=== PATIENT | female | born 1995 | race Caucasian/White ===

== ENCOUNTER 2021-07-12 12:20 | Emergency (ER) | payer OTHER, SELFPAY ==
--- NOTE | ~2021-07-12 | XR_ITS ---
EXAMINATION: XR chest 2V EXAM DATE: 07/12/2021 14:21 INDICATION: Cough, dyspnea, fever. TECHNIQUE: Frontal and lateral projections of the chest obtained and reviewed. There is no prior gary dy for comparison. FINDINGS: The lungs are clear. There are no pleural effusions. The cardiomediastinal silhouette is within normal limits. There is no pneumothorax suspected. The bones and soft tissues are unremarkab le. IMPRESSION: No acute cardiopulmonary findings. Reviewed, dictated and finalized at location A.
--- NOTE | 2021-07-12 12:52 | ED.SOB ---
HPI - SOB/Dyspnea General Chief Complaint: Shortness of Breath/Dyspnea Stated Complaint: headache shortness of breath fatigue Time Seen by Provider: 07/12/21 12:52 Source: patient Mode of arrival: ambulatory Limitations: no limitations History of Present Illness HPI Narrative: 26-year-old woman comes in today complaining of headache, body aches, cough productive of white sputum, shortness of breath, diarrhea and posttussive vomiting that started yesterday. She has had fatigue and very little activity since. She has had neither the COVID nor the influenza vaccine. She has had no hemoptysis, syncope, chest pain, blood in her vomit, blood in her stools or known sick exposures. No history of lung disease, however she is a smoker. MD elicited complaint: shortness of breath and cough Onset (ago): day(s) (1) Severity: moderate Exacerbating factors: coughing Relieving factors: rest Associated symptoms: fever, cough, wheezing, sputum production and nausea/vomiting Related Data Home oxygen amount: none Allergies Allergy/AdvReac Type Severity Reaction Status Date / Time hydrocodone Allergy Hives Verified 07/12/21 12:55 Review of Systems Constitutional: Constitutional: Reports fatigue, Reports fever(s) and Reports weakness Eyes: Eyes: Denies change in vision and Denies photophobia ENT: Denies dysphagia, Reports nasal congestion and Denies sore throat Cardiovascular: Cardiovascular: Denies chest pain and Denies radiating jaw, neck or arm pain Respiratory: Respiratory: Denies chest congestion, Reports cough, Reports dyspnea and Reports wheezing Gastrointestinal: Gastrointestinal: Denies abdominal pain, Reports diarrhea, Reports nausea and Reports vomiting Genitourinary: Genitourinary: Denies nocturia and Denies dysuria Musculoskeletal: Musculoskeletal: Denies arthralgias and Denies joint swelling Comments: Denies calf pain and swelling Integumentary/Breasts: Skin/Breast: Denies pruritus, Denies erythema and Denies rash Neurologic: Denies vertigo, Denies dizziness and Denies syncope [facility] Social History Social History (Updated 07/12/21 @ 15:10 by Richy Jordan MD) Smoking status: Current every day smoker Alcohol intake: never Substance use: former Substance use type: former substance user, heroin, amphetamines and opiates Living arrangements: with family Exam Const: General: healthy appearing, no acute distress and alert Orientation/consciousness: patient oriented x3 Limitations: no limitations HENMT: Face and sinus: normal facial exam Eyes: Conjunctivae: conjunctivae normal Pupils: Equal, round and reactive pupils present EOM: EOMs intact bilaterally Resp: Effort & Inspection: normal respiratory effort Auscultation: no rales, no rhonchi and wheezes scattered wheezes Cardio: Rate: regular rate Rhythm: regular rhythm Heart sounds: no murmurs Skin: General skin exam: normal color, no jaundice and no pallor Rashes: no rashes Neuro: General: patient oriented x3, moves all extremities, no focal motor deficits and CN's II-XI intact bilaterally Speech: normal speech Gait exam (Neuro): Normal gait present Extrem: General: normal to inspection and no clubbing, cyanosis or edema Psych: Mental Status: mental status grossly normal Affect: normal affect Attitude: cooperative Thought content: Yes Normal thought content present Course Vital Signs Vital signs: Vital Signs Temperature 37.7 C H 07/12/21 12:56 Pulse Rate 91 07/12/21 12:56 Respiratory Rate 19 07/12/21 12:56 Blood Pressure 138/108 H 07/12/21 12:56 Pulse Oximetry 95 07/12/21 12:56 Temperature 37.7 C H 07/12/21 12:56 Pulse Rate 86 07/12/21 14:59 Respiratory Rate 18 07/12/21 15:01 Blood Pressure 118/81 07/12/21 15:01 Pulse Oximetry 97 07/12/21 15:01 MDM - SOB/Dyspnea Differential Diagnosis Differential diagnosis: Likely community acquired pneumonia and other (COVID, viral syndrome, influenza) Lab Data
[2021-07-12 12:56] VITALS: BP 138/108; PULSE 91; RESP 19; TEMP 37.7; O2SAT 95
[2021-07-12] MEDS: ACETAMINOPHEN/CODEINE (*CRX) 300/30 MG TABLET 0.5 TAB PO (13:17)
[2021-07-12] MEDS: ONDANSETRON HCL ODT 4 MG TABLET PO (13:19)
[2021-07-12 13:24] LABS: Basophils Absolute Auto 0.02 K/mm3 (0.00-0.10); Basophils Percent Auto 0.2 % (0.0-1.0); Eosinophils Absolute Auto 0.01 K/mm3 (0.02-0.50); Eosinophils Percent Auto 0.1 % (1.0-6.0); Hematocrit 39.2 % (35.0-49.0); Immature Granulocyte Absolute 0.04 K/mm3 (0.00-0.00); Immature Granulocyte Percent A 0.5 % (0.0-0.0); Lymphocytes Absolute Auto 0.81 K/mm3 (1.10-4.50); Lymphocytes Percent Auto 9.9 % (18.0-42.0); Mean Corpuscular HGB Conc 33.2 g/dL (32.0-36.0); Mean Corpuscular Hemoglobin 29.3 pg (27.0-31.0); Mean Corpuscular Volume 88.5 fL (78.0-102.0); Mean Platelet Volume 10.4 fl (9.2-11.8); Monocytes Absolute Auto 0.53 K/mm3 (0.10-0.90); Monocytes Percent Auto 6.5 % (2.0-11.0); Neutrophils Absolute Auto 6.8 K/mm3 (1.7-7.2); Neutrophils Percent Auto 82.8 % (50.0-70.0); Platelet Count Result 173 K/mm3 (150-420); Red Blood Count 4.43 M/mm3 (4.20-5.40); Red Cell Distribution Width 14.6 % (11.6-14.4); White Blood Count 8.2 K/mm3 (4.8-10.8)
[2021-07-12 13:38] LABS: Alanine Aminotransferase 27 U/L (14-59); Albumin Level 4.3 g/dL (3.4-5.0); Alkaline Phosphatase 93 U/L (46-116); Anion Gap 10 mmol/L (8-16); Aspartate Amino Transferase 18 U/L (15-37); Bilirubin,Total 2.6 mg/dL (0.00-1.00); Blood Urea Nitrogen 15 mg/dL (7-18); Carbon Dioxide 27 mmol/L (21-32); Chloride 98 mmol/L (98-108); Estimated Glomerular Filt Rate > 60; Glucose 91 mg/dL (70-99); Osmolality Calculated 280 mOsm/kg (285-295); Potassium 3.8 mmol/L (3.5-5.1); Sodium 135 mmol/L (136-145); Total Protein 8.2 g/dL (6.4-8.2)
[2021-07-12 14:06] LABS: Influenza A QL RT-PCR Negative (Negative); Influenza B QL RT-PCR Negative (Negative)
[2021-07-12 14:06] LABS: SARS-CoV-2 RNA PCR Negative (Negative)
[2021-07-12] MEDS: IPRATROPIUM 0.5 MG/ALBUTEROL SULFATE 2.5 MG AMPUL.NEB 3 ML INHALATION (14:52)
[2021-07-12 14:54] VITALS: PULSE 92; RESP 20; O2SAT 100
[2021-07-12 14:59] VITALS: PULSE 86; RESP 18; O2SAT 96
[2021-07-12 15:01] VITALS: BP 118/81; RESP 18; O2SAT 97
== END 2021-07-12 15:21 | disposition home or self-care (01) ==
PROVIDERS: Emergency Provider Emergency Medicine
DX: B34.9 Viral infection, unspecified (principal); J98.01 Acute bronchospasm; F17.200 Nicotine dependence, unspecified, uncomplicated; Z20.822 Contact with and (suspected) exposure to COVID-19
CPT/HCPCS: 71046; 80053; 85025; 87502; 94640; 99283; A9270; C9803; U0003; U0005

== ENCOUNTER 2021-10-04 14:34 | Emergency (ER) | payer OTHER, SELFPAY ==
--- NOTE | ~2021-10-04 | CT_ITS ---
EXAMINATION: CT abdomen pelvis wo con DATE: 10/04/2021 16:36 INDICATION: Left flank pain TECHNIQUE: Computed tomography (CT) of the abdomen and pelvis was performed without intravenous contr ast. Automated exposure control and iterative reconstruction technique were employed. The dose-length product was 1068.44 mGy-cm. COMPARISON: None FINDINGS: Lung bases are clear. Heart size is normal. No pericardial or pleural effusion. Diffuse hepatic steat osis. Cholecystectomy clips the gallbladder fossa. Splenomegaly measuring 15.5 cm craniocaudal length . Pancreas, left kidney and bilateral adrenal glands are normal. Asymmetric moderate right perinephri c stranding with mild right hydronephrosis. No evident hydroureter or urolithiasis. Bladder is normal . Bladder, anteverted uterus and bilateral adnexa are unremarkable. There are couple sigmoid divertic dirk without adjacent inflammatory change to suggest diverticular colitis. Small bowel is normal. Appe ndix not visualized and likely surgically absent with suture line along the tip of the cecum and luly tional suture line versus surgical clips along the ileocolic mesentery. No free intraperitoneal gas o r fluid. No pathologically enlarged abdominal or pelvic lymphadenopathy. Mild thoracolumbar spondylos is. IMPRESSION: 1. Right perinephric stranding and mild right hydronephrosis without evident obstructing stone or mas s. Could not exclude either a low density or recently passed stone. Correlate with urinalysis to excl ude ascending urinary tract infection. 2. Diffuse hepatic steatosis. 3. Nonspecific splenomegaly. Reviewed, dictated and finalized at [facility]. REL [employer] IMPRESSION: 1. Right perinephric stranding and mild right hydronephrosis without evident ob structing stone or mass. Could not exclude either a low density or recently pas sed stone. Correlate with urinalysis to exclude ascending urinary tract infecti on. 2. Diffuse hepatic steatosis. 3. Nonspecific splenomegaly.
--- NOTE | 2021-10-04 14:45 | ED.URI ---
HPI - URI/Sore Throat General Chief Complaint: Upper Respiratory Infection Stated Complaint: muscle soreness, vomiting, diarrhea Time Seen by Provider: 10/04/21 14:45 Source: patient History of Present Illness HPI Narrative: 26-year-old female a history of asthma, partial hysterectomy, smoker presents with - sore throat -- cough with purulent sputum -- nausea, vomiting, abdominal pain and diarrhea -- weakness and body ache no fever patient has not been vaccinated for COVID. MD elicited complaint: cough and sore throat Pertinent past history: asthma Onset (ago): day(s) ( Two days) Description of mucous: yellow Able to tolerate fluids by mouth: Yes Exacerbating factors: nothing Relieving factors: nothing Context: sick contacts Associated symptoms: myalgias, sore throat, abdominal pain, nausea, vomiting and diarrhea Related Data Allergies Allergy/AdvReac Type Severity Reaction Status Date / Time hydrocodone Allergy Hives Verified 07/12/21 12:55 Review of Systems Review of Systems: All systems reviewed & are unremarkable except as noted in HPI and below Constitutional: Constitutional: Reports as per HPI and Reports no additional constitutional complaints Eyes: Eyes: Reports as per HPI and Reports no additional eye complaints ENT: Reports sore throat Cardiovascular: Cardiovascular: Reports as per HPI and Reports no additional cardiovascular complaints Respiratory: Respiratory: Reports as per HPI, Reports no additional respiratory complaints and Reports cough Gastrointestinal: Gastrointestinal: Reports as per HPI, Reports abdominal pain, Reports diarrhea, Reports nausea and Reports vomiting Comments: Had 5 episodes of vomiting and 4- 5 episodes of diarrhea today. Genitourinary: Genitourinary: Reports no additional female genitourinary complaints and Reports as per HPI Musculoskeletal: Musculoskeletal: Reports no additional musculoskeletal complaints and Reports as per HPI Integumentary/Breasts: Skin/Breast: Reports system reviewed and no additional complaints, except as docu Neurologic: Reports system reviewed and no additional complaints, except as documented Psychiatric: Psychiatric: Reports no additional psychiatric complaints and Reports as per HPI Endocrine: Endocrine: Reports no additional endocrine complaints Hematologic/Lymphatic: Hematologic/Lymphatic: Reports no additional hematologic/lymphatic complaints Allergic/Immunologic: Allergic/Immunologic: Reports no additional allergic/immunologic complaints [facility] Past Medical History Medical History (Updated 10/04/21 @ 17:02 by Efrain Bowen MD) Post hysterectomy menopause Social History Social History Smoking status: Current every day smoker Alcohol intake: never Substance use: former Substance use type: former substance user, heroin, amphetamines and opiates Exam Const: General: no acute distress Orientation/consciousness: patient oriented x3 HENMT: Head: normal to inspection Eyes: Conjunctivae: conjunctivae normal Pupils: Equal, round and reactive pupils present Neck: Neck: normal visual inspection and no lymphadenopathy Chest: Chest palpation & inspection: normal inspection of the chest Resp: Effort & Inspection: normal respiratory effort Auscultation: clear to auscultation bilaterally Cardio: Rate: regular rate Rhythm: regular rhythm GI: GI Palp: Yes Soft to palpation Other: No abdominal tenderness/ rigidity /rebound. : General: Yes no CVA tenderness Back/Spine/Pelvis: Back: no CVA tenderness Skin: General skin exam: normal color Rashes: no rashes Neuro: General: patient oriented x3, moves all extremities, no meningeal signs and CN's II-XI intact bilaterally Speech: normal speech Extrem: General: normal to inspection Psych: Mental Status: mental status grossly normal Course Course Emergency Course: She is afebrile and hemodynamically s
[2021-10-04 14:48] VITALS: BP 115/78; PULSE 105; RESP 16; TEMP 36.2; O2SAT 99
[2021-10-04 15:15] LABS: Basophils Absolute Auto 0.02 K/mm3 (0.00-0.10); Basophils Percent Auto 0.1 % (0.0-1.0); Eosinophils Absolute Auto 0.01 K/mm3 (0.02-0.50); Eosinophils Percent Auto 0.1 % (1.0-6.0); Hematocrit 40.4 % (35.0-49.0); Immature Granulocyte Absolute 0.06 K/mm3 (0.00-0.00); Immature Granulocyte Percent A 0.4 % (0.0-0.0); Lymphocytes Absolute Auto 0.82 K/mm3 (1.10-4.50); Lymphocytes Percent Auto 5.9 % (18.0-42.0); Mean Corpuscular HGB Conc 34.7 g/dL (32.0-36.0); Mean Corpuscular Hemoglobin 30.3 pg (27.0-31.0); Mean Corpuscular Volume 87.4 fL (78.0-102.0); Mean Platelet Volume 10.5 fl (9.2-11.8); Monocytes Absolute Auto 0.79 K/mm3 (0.10-0.90); Monocytes Percent Auto 5.7 % (2.0-11.0); Neutrophils Absolute Auto 12.1 K/mm3 (1.7-7.2); Neutrophils Percent Auto 87.8 % (50.0-70.0); Platelet Count Result 190 K/mm3 (150-420); Red Blood Count 4.62 M/mm3 (4.20-5.40); Red Cell Distribution Width 15.3 % (11.6-14.4); White Blood Count 13.8 K/mm3 (4.8-10.8)
[2021-10-04 15:18] LABS: Add Urine Microscopic? YES; Appearance Urine Cloudy (Clear); Bilirubin Urine 2+ (Negative); Blood Urine 2+ (Negative); Color Urine Yellow (Yellow); Glucose Urine UA Trace (Negative); Ketones Urine 1+ (Negative); Leukocyte Esterase Ur 2+ (Negative); Nitrate Urine Positive (Negative); Pregnancy On Board Control Positive; Protein Urine 2+ (Negative); Urine Pregnancy Test Negative
[2021-10-04 15:30] LABS: Alanine Aminotransferase 19 U/L (14-59); Alkaline Phosphatase 100 U/L (46-116); Anion Gap 12 mmol/L (8-16); Aspartate Amino Transferase 15 U/L (15-37); Bilirubin,Total 2.5 mg/dL (0.00-1.00); Blood Urea Nitrogen 15 mg/dL (7-18); Calcium 9.4 mg/dL (8.5-10.1); Carbon Dioxide 26 mmol/L (21-32); Chloride 97 mmol/L (98-108); Estimated Glomerular Filt Rate 60; Glucose 102 mg/dL (70-99); Osmolality Calculated 280 mOsm/kg (285-295); Potassium 3.6 mmol/L (3.5-5.1); Sodium 135 mmol/L (136-145); Total Protein 8.9 g/dL (6.4-8.2)
[2021-10-04 15:34] LABS: Transitional Epi Cells Urine Few /hpf; WBC Urine 16-20 /hpf (0-3)
[2021-10-04 15:35] LABS: Bacteria Urine 1+ /hpf
[2021-10-04 15:50] LABS: Influenza A QL RT-PCR Negative (Negative); Influenza B QL RT-PCR Negative (Negative)
[2021-10-04 15:55] LABS: SARS-CoV-2 RNA PCR Negative (Negative)
[2021-10-04] MEDS: CIPROFLOXACIN 500 MG TAB PO (16:23)
[2021-10-04 16:50] VITALS: BP 129/93; PULSE 98; RESP 20; TEMP 37.1; O2SAT 98
[2021-10-04] MEDS: PROCHLORPERAZINE EDISYLATE 10 MG/2 ML VIAL IM (16:59)
== END 2021-10-04 17:12 | disposition home or self-care (01) ==
PROVIDERS: Emergency Provider Internal Medicine Critical Care Medicine
DX: N12 Tubulo-interstitial nephritis, not specified as acute or chronic (principal); N13.30 Unspecified hydronephrosis; Z20.822 Contact with and (suspected) exposure to COVID-19
CPT/HCPCS: 36415; 74176; 80053; 81001; 81025; 85025; 87502; 96372; 99283; 99284; A9270; C9803; J0780; U0003; U0005

== ENCOUNTER 2023-04-07 13:35 | Emergency (ER) | payer OTHER, SELFPAY ==
[2023-04-07] VITALS (11 sets, daily range): BP systolic 107–139; BP diastolic 66–104; PULSE 75–101; RESP 16–20; TEMP 37.1; O2SAT 94–98
--- NOTE | ~2023-04-07 | CT_ITS ---
Clinical Indication: Shortness of breath CT Scan of the Chest with Contrast: Technique: Contiguous sections were acquired throughout the chest after intravenous administration of 100 cc of Omnipaque 350. Dose reduction technique was used on this scan by utilizing automated expos ure control and iterative reconstruction technique. The dose-length product (DLP) was 563.90 mGy-cm. Findings: There is no evidence of any significant mediastinal, hilar or axillary lymphadenopathy. There is no f illing defect in the pulmonary arterial tree to suggest pulmonary embolus. There is no evidence of ao rtic dissection or aneurysm. There is no evidence of pleural or pericardial effusion. 4 mm right basilar pulmonary nodule present (axial image 94). There are several tiny scattered pleura l-based subcentimeter nodules in the right lung as well. There is a 5 mm anteromedial left upper lobe pulmonary nodule (axial image 51). There are several subcentimeter pleural-based nodules at the left lung base, largest measuring 5 mm. Images through the upper abdomen reveal probable splenomegaly, partially imaged. Impression: No evidence of pulmonary embolus, aortic dissection, or aortic aneurysm. Multiple subcentimeter pulmonary nodules, as detailed above. According to Fleischner Society criteria , for a low-risk patient, no further follow-up required. For a high-risk patient, consider 12 month f ollow-up CT. Reviewed, dictated and finalized at [facility]. Impression: No evidence of pulmonary embolus, aortic dissection, or aortic aneurysm. Multiple subcentimeter pulmonary nodules, as detailed above. According to Fleis chner Society criteria, for a low-risk patient, no further follow-up required. For a high-risk patient, consider 12 month follow-up CT.
--- NOTE | ~2023-04-07 | XR_ITS ---
XR chest 2V DATE: 04/07/2023 14:38 INDICATION: Cough, shortness of breath, wheezing, sore throat for 2 weeks. TECHNIQUE: PA and lateral views COMPARISON: 07/12/2021 2 view chest FINDINGS: Normal heart size. No hilar or mediastinal enlargement. No pulmonary infiltrate or consolid ation, pleural effusion or pulmonary vascular congestion or pneumothorax is detected. Surgical clips, right upper quadrant, consistent with cholecystectomy. IMPRESSION: No active cardiopulmonary disease Reviewed, dictated and finalized at location A.
--- NOTE | 2023-04-07 13:42 | ED.GENADULT ---
HPI - General Adult General Chief complaint: Upper Respiratory Infection Stated complaint: Upper Resp symptoms Time Seen by Provider: 04/07/23 13:42 Source: patient Mode of arrival: ambulatory Limitations: no limitations History of Present Illness HPI narrative: 28-year-old white female with a history of asthma as a child complains of 2 weeks cough productive of yellow sputum and wheezing. Patient quit smoking a week and half ago. Denies any fever. She has had a sore throat no rash or itching bleeding or bruising lumps or bumps or swelling dizziness or lightheadedness problems eating drinking stooling or voiding or problems walking talking seeing or hearing or any other complaints. \ Past medical history: She had asthma as a younger age past surgical history tubal ligation with remover tubes C-sections x2 appendectomy cholecystectomy social history quit smoking week and half ago Related Data Allergies Allergy/AdvReac Type Severity Reaction Status Date / Time hydrocodone Allergy Hives Verified 04/07/23 14:18 Review of Systems Review of Systems: All systems reviewed & are unremarkable except as noted in HPI and below PMFSH Past Medical History Medical History Post hysterectomy menopause Social History Social History Smoking status: Current every day smoker Alcohol intake: never Substance use: former Substance use type: former substance user, heroin, amphetamines and opiates Living arrangements: with family Exam Narrative: White female no apparent distress. vital signs are normal Head:? Normocephalic atraumatic.? Eyes conjunctiva pink sclera nonicteric.? Ears TMs are normal.? Oropharynx is clear with moist mucous membranes no exudates.? Neck is supple no lymphadenopathy nontender full range of motion.? Back is nontender.? Chest nontender.? Lungs show wheezes diffusely without rales or rhonchi.? Heart is regular rate rhythm without murmurs gallops or rubs.? Abdomen soft and nontender no hepatosplenomegaly or masses no CVA tenderness no abdominal bruits.? Extremities no cyanosis clubbing or edema.? Neurological she is alert and oriented x4 motor and sensory grossly intact.? Skin is warm and dry without lesions. Course Vital Signs Vital signs: Vital Signs Temperature 37.1 C 04/07/23 13:35 Pulse Oximetry 98 04/07/23 13:35 Oxygen Delivery Room Air 04/07/23 13:35 Temperature 37.1 C 04/07/23 17:00 Pulse Rate 82 04/07/23 17:00 Respiratory Rate 17 04/07/23 17:00 Blood Pressure 130/88 04/07/23 17:00 Pulse Oximetry 97 04/07/23 17:00 Oxygen Delivery Room Air 04/07/23 17:00 Medical Decision Making MDM Narrative Medical decision making narrative: Independent Historian: patient Differential Dx includes but not limited to: asthma pneumonia strep COVID influenza a and B bronchospasm Medications were Reviewed:yes Medications, treatment, ED course: patient was given albuterol nebulizer for which she got a great benefit. . Chest x-ray was negative D-dimer was mildly elevated she went for a CTA of the chest that showed no PE. CBC, COVID, flu a and B, strep and CMP all were normal. Independently Interpreted by me: Chest x-ray showed no active disease as interpreted by me. External Source Review: Shared decision Making: Evaluation was discussed and all questions were answered and patient agreed on the plan to use an albuterol inhaler 2 puffs 4 times a day take Z-Andrade and prednisone 40 mg daily for 5 days and return if she got worse. Social Situation Impacting Patients Care: Discussed with Dr. ADLER DIAGNOSIS: Asthmatic bronchitis DISPOSITION: discharge home CONDITION AT DISCHARGE: stable Vital Signs Vital Signs: Vital Signs Temperature 37.1 C 04/07/23 13:35 Pulse Oximetry 98 04/07/23 13:35 Oxygen Delivery Room Air 04/07/23 13:35 [place]
[2023-04-07] MEDS: ALBUTEROL SULFATE NEB 2.5 MG/3 ML INH INHALATION (14:17)
[2023-04-07 14:37] LABS: Hematocrit 39.8 % (35.0-49.0); Hemoglobin 13.6 g/dL (12.0-15.0); Mean Corpuscular HGB Conc 34.2 g/dL (32.0-36.0); Mean Corpuscular Hemoglobin 30.2 pg (27.0-31.0); Mean Corpuscular Volume 88.4 fL (78.0-102.0); Mean Platelet Volume 10.1 fl (9.2-11.8); Platelet Count Result 155 K/mm3 (150-420); Red Cell Distribution Width 15.3 % (11.6-14.4); White Blood Count 6.6 K/mm3 (4.8-10.8)
[2023-04-07 14:52] LABS: Alanine Aminotransferase 20 U/L (14-59); Albumin Level 4.2 g/dL (3.4-5.0); Alkaline Phosphatase 94 U/L (46-116); Anion Gap 12 mmol/L (8-16); Aspartate Amino Transferase 25 U/L (15-37); Bilirubin,Total 1.7 mg/dL (0.00-1.00); Blood Urea Nitrogen 14 mg/dL (7-18); Carbon Dioxide 24 mmol/L (21-32); Chloride 102 mmol/L (98-108); Estimated Glomerular Filt Rate > 60; Glucose 81 mg/dL (70-99); Osmolality Calculated 285 mOsm/kg (285-295); Partial Thromboplastin Time 28.1 SEC (23.90-30.70); Potassium 3.6 mmol/L (3.5-5.1); Prothrombin Time 11.3 Seconds (9.50-12.10); Sodium 138 mmol/L (136-145); Total Protein 8.3 g/dL (6.4-8.2)
[2023-04-07 14:56] LABS: D Dimer 0.63 mg/L (0.19-0.50)
[2023-04-07 15:06] LABS: Strep Group A RT-PCR Not Detected (Negative)
[2023-04-07 16:07] LABS: SARS-CoV-2 RNA PCR Negative (Negative)
== END 2023-04-07 17:00 | disposition home or self-care (01) ==
PROVIDERS: Emergency Provider Emergency Medicine
DX: J45.901 Unspecified asthma with (acute) exacerbation (principal); F17.200 Nicotine dependence, unspecified, uncomplicated; Z20.822 Contact with and (suspected) exposure to COVID-19
CPT/HCPCS: 36415; 71046; 71275; 80053; 85027; 85380; 85610; 85730; 87635; 87651; 94640; 99284; Q9967

== ENCOUNTER 2023-06-13 07:32 | Emergency (ER) | payer OTHER, SELFPAY ==
[2023-06-13 07:32] VITALS: BP 140/96; PULSE 83; RESP 18; TEMP 36.5; O2SAT 96
--- NOTE | 2023-06-13 08:04 | ED.SOB ---
HPI - SOB/Dyspnea General Chief Complaint: Shortness of Breath/Dyspnea Stated Complaint: cough, shortness of breath Time Seen by Provider: 06/13/23 07:43 Source: patient Mode of arrival: ambulatory Limitations: no limitations History of Present Illness HPI Narrative: this is a 28-year-old female that presents with some shortness of breath does have a remote history of asthma was seen in the ER too long ago prescribed albuterol for bronchitis. Currently for the last week has been having some chest congestion some audible wheezing cough that is nonproductive with no fever chills no chest pain no abdominal pain no retractions. Patient is a smoker. MD elicited complaint: shortness of breath and cough Pertinent past history: asthma Onset (ago): day(s) Severity: mild Related Data Allergies Allergy/AdvReac Type Severity Reaction Status Date / Time hydrocodone Allergy Hives Verified 04/07/23 14:18 Review of Systems Review of Systems: All systems reviewed & are unremarkable except as noted in HPI and below PMFSH Past Medical History Medical History Post hysterectomy menopause Social History Social History Smoking status: Current every day smoker Alcohol intake: never Substance use: former Substance use type: former substance user, heroin, amphetamines and opiates Living arrangements: with family Exam Const: General: healthy appearing Nutritional Appearance: well nourished Orientation/consciousness: patient oriented x3 Limitations: no limitations HENMT: Head: normal to inspection Eyes: Conjunctivae: conjunctivae normal Neck: Neck: normal visual inspection Chest: Chest palpation & inspection: normal inspection of the chest Resp: Effort & Inspection: normal respiratory effort Auscultation: wheezes Cardio: Rate: regular rate Rhythm: regular rhythm GI: GI Palp: Yes Soft to palpation Neuro: General: patient oriented x3 Extrem: General: normal to inspection Course Course Emergency Course: Patient had a COVID RSV and influenza performed and reviewed with patient, DuoNebs was given along with 80mg IM Depo-Medrol reassessment of patient patient symptoms have improved there is less wheezing. Advised patient to discontinue smoking. Critical Care Time Critical Care Time Critical Care Time: No Discharge Plan Discharge Clinical Impression: Bronchitis Patient Disposition: Home, Self-Care Condition: Stable Instructions: Antibiotic Form, Acute Bronchitis (ED) Additional Instructions: advised to take medicine as prescribed and follow-up with primary within 1 to 2 weeks further evaluation treatment. Prescriptions: New ProAir RespiClick 90 mcg/actuation aerosol powdr breath activated 2 inh inhalation QID PRN (Reason: shortness of breath or wheezing) Qty: 1 0RF azithromycin [Zithromax Z-Andrade] 250 mg tablet See Rx Instructions .ROUTE .COMPLEX Qty: 6 0RF Rx Instructions: For 250 mg dose pack: take 500 mg today (day 1), then 250 mg for 4 days (days 2-5) prednisone 20 mg tablet 20 mg PO DAILY 5 Days Qty: 5 0RF No Action albuterol sulfate [Ventolin HFA] 90 mcg/actuation HFA aerosol inhaler 2 puff inhalation QID 10 Days Qty: 8.5 0RF Follow-up/Referrals: UNKNOWN,DOCTOR [Primary Care Provider] - Time of Disposition: 09:01
[2023-06-13] MEDS: IPRATROPIUM 0.5 MG/ALBUTEROL SULFATE 2.5 MG AMPUL.NEB 3 ML INHALATION (08:06)
[2023-06-13 08:07] VITALS: PULSE 84; RESP 16; O2SAT 94
[2023-06-13] MEDS: methylPREDNISolone ACETATE 40 MG/ML VIAL 80 MG IM (08:08)
[2023-06-13 08:13] VITALS: PULSE 100; RESP 16; O2SAT 99
--- NOTE | 2023-06-13 08:43 | PC.NURSE ---
pt resting eyes closed. resp even unlabored. decreased cough after resp treatment. awaiting covid test results
[2023-06-13 08:57] LABS: Influenza A QL RT-PCR Negative (Negative); Influenza B QL RT-PCR Negative (Negative); RSV RNA, RT-PCR Negative (Negative); SARS-CoV-2 RNA PCR Negative (Negative)
[2023-06-13 09:11] VITALS: BP 154/95; PULSE 77; RESP 20; TEMP 37.2; O2SAT 97
== END 2023-06-13 09:20 | disposition home or self-care (01) ==
PROVIDERS: Emergency Provider Emergency Medicine
DX: J40 Bronchitis, not specified as acute or chronic (principal); F17.200 Nicotine dependence, unspecified, uncomplicated; Z20.822 Contact with and (suspected) exposure to COVID-19
CPT/HCPCS: 87637; 94640; 96372; 99283; J1030

== ENCOUNTER 2023-08-12 15:53 | Emergency (ER) | payer OTHER, SELFPAY ==
[2023-08-12 15:53] VITALS: BP 157/96; PULSE 79; RESP 18; TEMP 36.2; O2SAT 98
--- NOTE | 2023-08-12 16:10 | ED.GENADULT ---
HPI - General Adult General Chief complaint: Wound/Laceration Stated complaint: toe laceration Time Seen by Provider: 08/12/23 16:04 History of Present Illness HPI narrative: 28yo woman presents with abrasion/laceration to left great toe after scraping it over a sliding door metal frame. Related Data Allergies Allergy/AdvReac Type Severity Reaction Status Date / Time hydrocodone Allergy Hives Verified 08/12/23 16:05 Review of Systems Review of Systems: All systems reviewed & are unremarkable except as noted in HPI and below Constitutional: Constitutional: Denies fever(s) ENT: Denies dysphagia Cardiovascular: Cardiovascular: Denies chest pain Respiratory: Respiratory: Denies dyspnea PMFSH Past Medical History Medical History Post hysterectomy menopause Social History Social History Smoking status: Current every day smoker Alcohol intake: never Substance use: former Substance use type: former substance user, heroin, amphetamines and opiates Living arrangements: with family Exam Const: General: healthy appearing and no acute distress Nutritional Appearance: well nourished Eyes: Conjunctivae: conjunctivae normal Resp: Effort & Inspection: normal respiratory effort Skin: General skin exam: normal color, no jaundice and no pallor Other: tiny abrasion with tissue flap to volar aspect of left great toe Extrem: General: no clubbing, cyanosis or edema Other: see skin exam Course Vital Signs Vital signs: Vital Signs Temperature 36.2 C L 08/12/23 15:53 Pulse Rate 79 08/12/23 15:53 Respiratory Rate 18 08/12/23 15:53 Blood Pressure 157/96 H 08/12/23 15:53 Pulse Oximetry 98 08/12/23 15:53 Oxygen Delivery Room Air 08/12/23 15:53 Temperature 36.2 C L 08/12/23 15:53 Pulse Rate 79 08/12/23 15:53 Respiratory Rate 18 08/12/23 15:53 Blood Pressure 157/96 H 08/12/23 15:53 Pulse Oximetry 98 08/12/23 15:53 Oxygen Delivery Room Air 08/12/23 15:56 Procedures Laceration Laceration 1: Date: 08/12/23 Time: 16:14 Site: lower extremity Size (cm): 0.5 Description: flap Depth: simple, single layer Local Anesthetic: none Pre-repair: irrigated extensively ====== Skin Level ====== Skin layer closed with: dermabond ====== Subcutaneous Layer ====== ====== Muscle Layer ====== ====== Tendon Layer ====== Medical Decision Making MDM Narrative Medical decision making narrative: blunt trauma DDx abrasion, contusion, laceration, hematoma Vital Signs Vital Signs: Vital Signs Temperature 36.2 C L 08/12/23 15:53 Pulse Rate 79 08/12/23 15:53 Respiratory Rate 18 08/12/23 15:53 Blood Pressure 157/96 H 08/12/23 15:53 Pulse Oximetry 98 08/12/23 15:53 Oxygen Delivery Room Air 08/12/23 15:53 Temperature 36.2 C L 08/12/23 15:53 Pulse Rate 79 08/12/23 15:53 Respiratory Rate 18 08/12/23 15:53 Blood Pressure 157/96 H 08/12/23 15:53 Pulse Oximetry 98 08/12/23 15:53 Oxygen Delivery Room Air 08/12/23 15:56 Discharge Plan Discharge Clinical Impression: Abrasion of great toe, left Qualifiers: Encounter type: initial encounter Qualified Code(s): S90.412A - Abrasion, left great toe, initial encounter Patient Disposition: Home, Self-Care Condition: Stable Additional Instructions: Keep your foot clean and dry. You may wash gently with soap and water. Do not scrub vigorously for the next 72 hours to avoid disturbing the wound. Prescriptions: No Action albuterol sulfate [Ventolin HFA] 90 mcg/actuation HFA aerosol inhaler 2 puff inhalation QID 10 Days Qty: 8.5 0RF albuterol sulfate 90 mcg/actuation HFA aerosol inhaler 1 puff inhalation QID PRN (Reason: shortness of breath or wheezing) Qty: 6.7 0RF F
[2023-08-12] MEDS: TETANUS,DIPHTHERIA,AC PERTUSSIS ADULT 0.5 ML (ADACEL) IM (16:21)
[2023-08-12 16:50] VITALS: BP 142/92; PULSE 80; RESP 18; O2SAT 98
--- NOTE | 2023-08-12 16:51 | PC.NURSE ---
WOUND REPAIRED WITH SKIN GLUE AND BANDAID APPLIED. PT AMBULATORY OUT OF ED WITHOUT DISTRESS.
== END 2023-08-12 16:50 | disposition home or self-care (01) ==
LOC: CHSED 16:41
PROVIDERS: Emergency Provider Emergency Medicine
DX: S91.112A Laceration without foreign body of left great toe without damage to nail, initial encounter (principal); S90.412A Abrasion, left great toe, initial encounter; F17.200 Nicotine dependence, unspecified, uncomplicated; Z23 Encounter for immunization; W22.8XXA Striking against or struck by other objects, initial encounter
CPT/HCPCS: 12001; 90471; 90715; 99282

== ENCOUNTER 2024-02-15 19:37 | Emergency (ER) | payer SELFPAY ==
--- NOTE | ~2024-02-15 | XR_ITS ---
EXAMINATION: XR chest 1V portable Exam Date/Time: 02/15/2024 19:46 CDT HISTORY: cough /shortness of breath Comparison: 04/07/2023. RESULT: Lines, tubes, and devices: Cholecystectomy clips. Lungs and pleura: Clear. Cardiomediastinal silhouette: Stable. Other: No acute osseous or upper abdominal finding. IMPRESSION: No acute cardiopulmonary process. Reviewed, dictated and finalized at location K.
[2024-02-15 19:43] VITALS: BP 157/90; PULSE 107; RESP 18; TEMP 37; O2SAT 98
--- NOTE | 2024-02-15 19:44 | ED.DIZZY ---
HPI - Dizziness General Chief Complaint: Upper Respiratory Infection Stated Complaint: Dizzy/Diahrea Source: patient Mode of arrival: ambulatory Limitations: no limitations History of Present Illness HPI Narrative: 29 year a history smoking, marijuana use, asthma presents to the ER a 2 day history of -- nonproductive cough -- shortness of breath. -- Dizziness. the patient complains of lightheadedness -- 1 episode of large volume diarrhea. No abdominal pain. No nausea / vomiting. No fever or chills. MD elicited complaint: dizziness and lightheadedness Onset (ago): day(s) ( Two days) Timing: gradual onset Severity: moderate Description: lightheadedness History of similar symptoms: No Exacerbating factors: nothing Relieving factors: nothing Associated symptoms: shortness of breath and weakness Related Data Allergies Allergy/AdvReac Type Severity Reaction Status Date / Time hydrocodone Allergy Hives Verified 02/15/24 19:49 Review of Systems Review of Systems: All systems reviewed & are unremarkable except as noted in HPI and below Constitutional: Constitutional: Reports as per HPI and Reports no additional constitutional complaints Eyes: Eyes: Reports as per HPI and Reports no additional eye complaints ENT: Reports system reviewed and no additional complaints, except as documented and Reports as per HPI Cardiovascular: Cardiovascular: Reports as per HPI and Reports no additional cardiovascular complaints Respiratory: Respiratory: Reports as per HPI, Reports no additional respiratory complaints, Reports cough and Reports dyspnea Gastrointestinal: Gastrointestinal: Reports as per HPI, Reports no additional gastrointestinal complaints and Reports vomiting Genitourinary: Genitourinary: Reports no additional female genitourinary complaints Musculoskeletal: Musculoskeletal: Reports no additional musculoskeletal complaints and Reports as per HPI Integumentary/Breasts: Skin/Breast: Reports system reviewed and no additional complaints, except as docu and Reports as per HPI Neurologic: Reports system reviewed and no additional complaints, except as documented and Reports as per HPI Psychiatric: Psychiatric: Reports no additional psychiatric complaints and Reports as per HPI Endocrine: Endocrine: Reports no additional endocrine complaints and Reports as per HPI Hematologic/Lymphatic: Hematologic/Lymphatic: Reports no additional hematologic/lymphatic complaints and Reports as per HPI Allergic/Immunologic: Allergic/Immunologic: Reports no additional allergic/immunologic complaints and Reports as per HPI PMFSH Past Medical History Medical History Post hysterectomy menopause Social History Social History Smoking status: Current every day smoker Alcohol intake: never Substance use: former Substance use type: former substance user, heroin, amphetamines and opiates Living arrangements: with family Exam Narrative: afebrile. Oxygen saturation of 98% on room air. Heart rate of 107. Const: General: no acute distress Nutritional Appearance: well nourished Orientation/consciousness: patient oriented x3 Limitations: no limitations HENMT: Head: normal to inspection Ears: TM's normal bilaterally Face/Nose/Sinus: Normal external nose present Face and sinus: normal facial exam Mouth: Yes Normal oral and palatal mucosa present Throat: posterior oropharynx normal Eyes: Conjunctivae: conjunctivae normal Pupils: Equal, round and reactive pupils present EOM: EOMs intact bilaterally Direct Ophthalmoscopy: no photophobia Neck: Neck: normal visual inspection, no lymphadenopathy and no meningeal signs Chest: Chest palpation & inspection: normal inspection of the chest Resp: Effort & Inspection: normal respiratory effort Auscultation: diminished lung sounds Cardio: Rate: regular rate Rhythm: reg
--- NOTE | 2024-02-15 19:45 | ECG_ITS ---
SEE SCANNED COPY FOR CONFIRMED REPORT MTDD
[2024-02-15 19:48] VITALS: O2SAT 98
[2024-02-15 20:27] LABS: Basophils Absolute Auto 0.01 K/mm3 (0.00-0.10); Basophils Percent Auto 0.2 % (0.0-1.0); Bilirubin Urine Negative (Negative); Blood Urine Trace-intact (Negative); Color Urine Light Yellow (Yellow); Eosinophils Absolute Auto 0.05 K/mm3 (0.02-0.50); Eosinophils Percent Auto 0.9 % (1.0-6.0); Glucose Urine UA Negative (Negative); Hemoglobin 12.2 g/dL (12.0-15.0); Immature Granulocyte Absolute 0.02 K/mm3 (0.00-0.00); Immature Granulocyte Percent A 0.4 % (0.0-0.0); Ketones Urine Negative (Negative); Leukocyte Esterase Ur Negative LEU/UL (Negative); Lymphocytes Absolute Auto 0.63 K/mm3 (1.10-4.50); Lymphocytes Percent Auto 11.6 % (18.0-42.0); Mean Corpuscular Hemoglobin 29.5 pg (27.0-31.0); Mean Corpuscular Volume 89.4 fL (78.0-102.0); Mean Platelet Volume 9.8 fl (9.2-11.8); Monocytes Percent Auto 7.4 % (2.0-11.0); Neutrophils Absolute Auto 4.31 K/mm3 (1.70-7.20); Neutrophils Percent Auto 79.5 % (50.0-70.0); Nitrate Urine Negative (Negative); Platelet Count Result 153 K/mm3 (150-420); Protein Urine Negative (Negative); Red Blood Count 4.14 M/mm3 (4.20-5.40); Red Cell Distribution Width 15.8 % (11.6-14.4); White Blood Count 5.4 K/mm3 (4.8-10.8); pH Urine 6.5 (5.0-8.0)
[2024-02-15 20:46] LABS: Add Urine Microscopic? YES; Amorphous Sediment Urine Few; Appearance Urine Sl Cloudy (Clear); Bacteria Urine 1+ /hpf; RBC Urine 0-2 /hpf (0-2); Squamous Epithelial Cell Urine Many /hpf (Few)
[2024-02-15 20:57] LABS: Alanine Aminotransferase 30 U/L (14-59); Albumin Level 3.8 g/dL (3.4-5.0); Alkaline Phosphatase 91 U/L (46-116); Anion Gap 10 mmol/L (4-12); Aspartate Amino Transferase 15 U/L (15-37); Bilirubin,Total 0.9 mg/dL (0.00-1.00); Blood Urea Nitrogen 14 mg/dL (7-18); Carbon Dioxide 27 mmol/L (21-32); Chloride 102 mmol/L (98-108); Estimated Glomerular Filt Rate > 60; Glucose 93 mg/dL (70-99); Lactic Acid Reflex 0.7 mmol/L (0.4-2.0); Lipase 21 U/L (16-77); Osmolality Calculated 288 mOsm/kg (285-295); Potassium 3.4 mmol/L (3.5-5.1); Sodium 139 mmol/L (136-145); Total Protein 7.5 g/dL (6.4-8.2)
[2024-02-15 20:58] LABS: Troponin I < 4.0 ng/L (0.00-60.4)
[2024-02-15 21:09] VITALS: BP 149/97; PULSE 92; RESP 18; TEMP 36.7; O2SAT 100
[2024-02-15] MEDS: POTASSIUM CHLORIDE 20 MEQ ER TABLET PO (21:17)
[2024-02-15] MEDS: methylPREDNISolone SOD SUCC 40 MG VIAL IV PUSH (21:17)
[2024-02-15] MEDS: AZITHROMYCIN 250 MG TABLET 500 MG PO (21:17)
== END 2024-02-15 21:50 | disposition home or self-care (01) ==
PROVIDERS: Emergency Provider Internal Medicine Critical Care Medicine
DX: J40 Bronchitis, not specified as acute or chronic (principal); F17.210 Nicotine dependence, cigarettes, uncomplicated; F12.90 Cannabis use, unspecified, uncomplicated
CPT/HCPCS: 36415; 71045; 80053; 81001; 83605; 83690; 84484; 85025; 93005; 96374; 99284; A9270; J2919

== ENCOUNTER 2024-02-18 20:23 | Emergency (ER) | payer SELFPAY ==
[2024-02-18] VITALS (14 sets, daily range): BP systolic 125–148; BP diastolic 78–99; PULSE 87–95; RESP 20; O2SAT 93–100
--- NOTE | ~2024-02-18 | XR_ITS ---
EXAMINATION: XR chest 2V Exam Date/Time: 02/18/2024 20:50 CDT HISTORY: sob Comparison: 02/15/2024. RESULT: Lines, tubes, and devices: Cholecystectomy clips. Lungs and pleura: Clear. Cardiomediastinal silhouette: Stable. Other: No acute osseous or upper abdominal finding. IMPRESSION: No acute cardiopulmonary process. Reviewed, dictated and finalized at location K.
--- NOTE | 2024-02-18 20:31 | ED.URI ---
HPI - URI/Sore Throat General Chief Complaint: Upper Respiratory Infection Stated Complaint: Hoarseness/cough/sore throat Time Seen by Provider: 02/18/24 20:26 Source: patient Mode of arrival: ambulatory Limitations: no limitations History of Present Illness HPI Narrative: Patient is a 29-year-old female who was here last week for asthma exacerbation and bronchitis. She was given a Z-Andrade and 1 shot of steroid. She appears to be not doing better at this time per her discussion. She is feeling more short of breath at this time. No chest pain. MD elicited complaint: cough and sore throat Pertinent past history: asthma Onset (ago): week(s) (1) Consistency: constant Severity: moderate Pain scale (0-10): 1 Description of mucous: clear Able to tolerate fluids by mouth: Yes Exacerbating factors: nothing Relieving factors: nothing Associated symptoms: voice changes, sore throat, cough and shortness of breath Treatments prior to arrival: antibiotics Related Data Allergies Allergy/AdvReac Type Severity Reaction Status Date / Time hydrocodone Allergy Hives Verified 02/15/24 19:49 Review of Systems Review of Systems: All systems reviewed & are unremarkable except as noted in HPI and below Constitutional: Constitutional: Reports no additional constitutional complaints Eyes: Eyes: Reports no additional eye complaints ENT: Reports system reviewed and no additional complaints, except as documented Cardiovascular: Cardiovascular: Reports no additional cardiovascular complaints Respiratory: Respiratory: Reports no additional respiratory complaints Gastrointestinal: Gastrointestinal: Reports no additional gastrointestinal complaints Genitourinary: Genitourinary: Reports no additional female genitourinary complaints Musculoskeletal: Musculoskeletal: Reports no additional musculoskeletal complaints Integumentary/Breasts: Skin/Breast: Reports system reviewed and no additional complaints, except as docu Neurologic: Reports system reviewed and no additional complaints, except as documented Psychiatric: Psychiatric: Reports no additional psychiatric complaints Endocrine: Endocrine: Reports no additional endocrine complaints Hematologic/Lymphatic: Hematologic/Lymphatic: Reports no additional hematologic/lymphatic complaints Allergic/Immunologic: Allergic/Immunologic: Reports no additional allergic/immunologic complaints [facility] Past Medical History Medical History Post hysterectomy menopause Social History Social History Smoking status: Current every day smoker Alcohol intake: never Substance use: former Substance use type: former substance user, heroin, amphetamines and opiates Living arrangements: with family Exam Const: General: healthy appearing Nutritional Appearance: well nourished Orientation/consciousness: patient oriented x3 HENMT: Head: normal to inspection Ears: external ears normal Face/Nose/Sinus: Normal external nose present Eyes: Conjunctivae: conjunctivae normal Pupils: Equal, round and reactive pupils present EOM: EOMs intact bilaterally Neck: Neck: normal visual inspection Chest: Chest palpation & inspection: normal inspection of the chest Resp: Effort & Inspection: abnormal respiratory effort, not labored and tachypneic Auscultation: not clear to auscultation bilaterally, no crackles, no rales, rhonchi left lower, no wheezes, breath sounds present and diminished lung sounds on the right in the lower lung bojorquez and localized Cardio: Rate: regular rate Rhythm: regular rhythm Heart sounds: no murmurs GI: Inspection: non-distended GI Palp: Yes Soft to palpation and No Tenderness to palpation present (GI) Auscultation: normal bowel sounds : General: Yes bladder normal to palpation Back/Spine/Pelvis: Back: no CVA tenderness Skin: General skin exam: normal color Rashe
[2024-02-18] MEDS: methylPREDNISolone SOD SUCC 125 MG VIAL IM (20:38)
[2024-02-18] MEDS: IPRATROPIUM 0.5 MG/ALBUTEROL SULFATE 2.5 MG AMPUL.NEB 3 ML INHALATION (20:39)
[2024-02-18] MEDS: levoFLOXacin 500 MG TABLET PO (22:00)
== END 2024-02-18 22:02 | disposition home or self-care (01) ==
PROVIDERS: Emergency Provider Emergency Medicine
DX: J18.9 Pneumonia, unspecified organism (principal); J45.901 Unspecified asthma with (acute) exacerbation; F17.210 Nicotine dependence, cigarettes, uncomplicated
CPT/HCPCS: 71046; 94640; 96372; 99283; A9270; J2919

== ENCOUNTER 2024-06-25 07:41 | Emergency (ER) | payer SELFPAY ==
--- NOTE | ~2024-06-25 | XR_ITS ---
AP and lateral views of the right tibia/fibula Clinical History: Pain Findings: No acute fracture or dislocation is seen. Osseous alignment is anatomic. Joint spaces are p reserved without significant erosive or degenerative change. Soft tissues are unremarkable. Impression: Unremarkable right tib-fib radiographs. Reviewed, dictated and finalized at [facility]. Impression: Unremarkable right tib-fib radiographs.
[2024-06-25 07:43] VITALS: BP 162/95; PULSE 85; RESP 20; TEMP 36.4; O2SAT 98
--- NOTE | 2024-06-25 07:49 | ED.EXTPRO ---
HPI - Extremity Problem General Stated complaint: right leg pain Source: patient Mode of arrival: ambulatory Limitations: no limitations History of Present Illness HPI Narrative: is a 29-year-old female who presents with right anterior leg pain with no calf pain no calf swelling no redness has good range of motion although the anterior styles is tender with palpation patient stands on her legs all day long at work there is no fever chills no shortness of breath no chest pain. No known injury. MD Complaint: extremity pain Onset (ago): day(s) Pain Consistency: intermittent Location: right Severity scale (1-10): 4 Quality: aching Radiation: distal Related Data Allergies Allergy/AdvReac Type Severity Reaction Status Date / Time hydrocodone Allergy Hives Verified 02/15/24 19:49 Review of Systems Review of Systems: All systems reviewed & are unremarkable except as noted in HPI and below PMFSH Past Medical History Medical History Post hysterectomy menopause Social History Social History Smoking status: Current every day smoker Alcohol intake: never Substance use: former Substance use type: former substance user, heroin, amphetamines and opiates Living arrangements: with family Exam Const: General: healthy appearing Nutritional Appearance: well nourished Orientation/consciousness: patient oriented x3 Limitations: no limitations Chest: Chest palpation & inspection: normal inspection of the chest Resp: Effort & Inspection: normal respiratory effort Auscultation: clear to auscultation bilaterally Cardio: Rate: regular rate Rhythm: regular rhythm GI: GI Palp: Yes Soft to palpation Auscultation: normal bowel sounds Back/Spine/Pelvis: Back: no CVA tenderness Skin: General skin exam: normal color Rashes: no rashes Wounds: no wounds Neuro: General: patient oriented x3 and moves all extremities Extrem: Other: Tender anterior chin is a question Course Course Emergency Course: patient received 60mg IM Toradol in after reassessment pain level has improved, x-ray performed shows no acute fractures. Vital Signs Vital signs: Vital Signs Temperature 36.4 C 06/25/24 07:43 Pulse Rate 85 06/25/24 07:43 Respiratory Rate 20 06/25/24 07:43 Blood Pressure 162/95 H 06/25/24 07:43 Pulse Oximetry 98 06/25/24 07:43 Oxygen Delivery Room Air 06/25/24 07:43 Temperature 36.4 C 06/25/24 07:43 Pulse Rate 85 06/25/24 07:43 Respiratory Rate 20 06/25/24 07:43 Blood Pressure 162/95 H 06/25/24 07:43 Pulse Oximetry 98 06/25/24 07:43 Oxygen Delivery Room Air 06/25/24 07:43 Critical Care Time Critical Care Time Critical Care Time: No Discharge Plan Discharge Clinical Impression: Leg strain Patient Disposition: Home, Self-Care Condition: Stable Instructions: Antibiotic Form, Muscle Strain (ED) Additional Instructions: advised to take Tylenol or Motrin as needed and follow with primary within 1 week for further evaluation treatment. Prescriptions: No Action azithromycin [Zithromax] 250 mg tablet 250 mg PO DAILY 4 Days Qty: 4 0RF Rx Instructions: start on day 2 of therapy levofloxacin 500 mg tablet 500 mg PO DAILY 7 Days Qty: 7 0RF prednisone 20 mg tablet 40 mg PO DAILY 3 Days Qty: 6 0RF Follow-up/Referrals: UNKNOWN,DOCTOR [Primary Care Provider] -
[2024-06-25] MEDS: KETOROLAC (*BKC) 60 MG/2 ML VIAL IM (08:02)
== END 2024-06-25 08:30 | disposition home or self-care (01) ==
PROVIDERS: Emergency Provider Emergency Medicine
DX: S86.911A Strain of unspecified muscle(s) and tendon(s) at lower leg level, right leg, initial encounter (principal); F17.200 Nicotine dependence, unspecified, uncomplicated; X58.XXXA Exposure to other specified factors, initial encounter
CPT/HCPCS: 73590; 96372; 99283; J1885

== ENCOUNTER 2024-10-24 12:36 | Emergency (ER) | payer SELFPAY ==
--- NOTE | ~2024-10-24 | XR_ITS ---
XR chest 1V portable DATE: 10/24/2024 12:50 INDICATION: Cough and congestion for 4 days TECHNIQUE: Portable upright AP chest on 10/24/2024 at 1247 hours COMPARISON: 02/18/2024 2 view chest FINDINGS: Normal heart size. No hilar or mediastinal enlargement. There is patchy infiltrate in the left lower lobe pneumonia. No pulmonary infiltrate or consolidation, pleural effusion or pulmonary vascular congestion or pneumo thorax is detected otherwise. Included skeletal structures are unremarkable. IMPRESSION: Patchy left lower lobe infiltrate suggesting pneumonia Reviewed, dictated and finalized at location A. SCRIPTER
[2024-10-24 12:36] VITALS: BP 113/86; PULSE 104; RESP 20; TEMP 36.4; O2SAT 96
[2024-10-24 12:40] VITALS: O2SAT 97
[2024-10-24] MEDS: methylPREDNISolone ACETATE 40 MG/ML VIAL 80 MG IM (13:08)
[2024-10-24] MEDS: IPRATROPIUM 0.5 MG/ALBUTEROL SULFATE 2.5 MG AMPUL.NEB 3 ML INHALATION (13:08)
[2024-10-24 13:27] VITALS: BP 136/92; PULSE 101; RESP 20; O2SAT 98
[2024-10-24 13:27] LABS: SARS-CoV-2 RNA PCR Negative (Negative)
[2024-10-24 13:28] LABS: Influenza A QL RT-PCR Negative (Negative); Influenza B QL RT-PCR Negative (Negative); RSV RNA, RT-PCR Negative (Negative)
--- NOTE | 2024-10-24 13:32 | ED.URI ---
HPI - URI/Sore Throat General Chief Complaint: Upper Respiratory Infection Stated Complaint: cough Time Seen by Provider: 10/24/24 12:41 Source: patient Mode of arrival: ambulatory Limitations: no limitations History of Present Illness HPI Narrative: This is a 29-year-old female who presents with 5 day history of cough and congestion has a history of asthma and has had low-grade fevers cough is productive of yellow sputum with some mild wheezing with no chest pain no abdominal pain no nausea vomiting. Patient has a sickness exposure with her being diagnosed with pneumonia. MD elicited complaint: fever and cough Onset (ago): day(s) Consistency: constant Severity: mild Description of mucous: yellow Related Data Allergies Allergy/AdvReac Type Severity Reaction Status Date / Time hydrocodone Allergy Hives Verified 10/24/24 12:44 Review of Systems Review of Systems: All systems reviewed & are unremarkable except as noted in HPI and below PMFSH Past Medical History Medical History Post hysterectomy menopause Social History Social History Smoking status: Current every day smoker Alcohol intake: never Substance use: former Substance use type: former substance user, heroin, amphetamines and opiates Living arrangements: with family Exam Const: General: healthy appearing Nutritional Appearance: well nourished Orientation/consciousness: patient oriented x3 Limitations: no limitations Neck: Neck: normal visual inspection Chest: Chest palpation & inspection: normal inspection of the chest Resp: Effort & Inspection: normal respiratory effort Auscultation: wheezes Cardio: Rate: regular rate Rhythm: regular rhythm GI: GI Palp: Yes Soft to palpation Auscultation: normal bowel sounds : General: Yes bladder normal to palpation Neuro: General: patient oriented x3, moves all extremities and no meningeal signs Course Course Emergency Course: Patient had a DuoNeb breathing treatment 80mg IM Solu-Medrol, chest x-ray shows patchy infrahilar infiltrate consistent with pneumonia patient O2 sats 98% currently afebrile and a dose of p.o. Levaquin was administered. Vital Signs Vital signs: Vital Signs Temperature 36.4 C 10/24/24 12:36 Pulse Rate 104 H 10/24/24 12:36 Respiratory Rate 20 10/24/24 12:36 Blood Pressure 113/86 10/24/24 12:36 Pulse Oximetry 96 10/24/24 12:36 Oxygen Delivery Room Air 10/24/24 12:36 Temperature 36.4 C 10/24/24 12:36 Pulse Rate 101 H 10/24/24 13:27 Respiratory Rate 20 10/24/24 13:27 Blood Pressure 136/92 H 10/24/24 13:27 Pulse Oximetry 98 10/24/24 13:27 Oxygen Delivery Room Air 10/24/24 13:27 MDM - URI/Sore Throat Lab Data Labs: Lab Results 10/24/24 Range/Units 12:43 Influenza A (RT-PCR) Negative (Negative) Influenza B (RT-PCR) Negative (Negative) RSV (RT-PCR) Negative (Negative) SARS-CoV-2 RNA (RT-PCR) Negative (Negative) Critical Care Time Critical Care Time Critical Care Time: No Discharge Plan Discharge Clinical Impression: Pneumonia Qualifiers: Pneumonia type: due to unspecified organism Laterality: unspecified laterality Lung location: unspecified part of lung Qualified Code(s): J18.9 - Pneumonia, unspecified organism Patient Disposition: Home, Self-Care Condition: Stable Instructions: Antibiotic Form, Community Acquired Pneumonia (ED) Additional Instructions: advised patient to take medication as prescribed and follow up with primary within 1 week for further evaluation and treatment. Patient Language: Bulgarian Prescriptions: New levofloxacin 500 mg tablet 500 mg PO DAILY 6 Days Qty: 6 0RF ProAir RespiClick 90 mcg/actuation aerosol powdr breath activated 2 inh inhalation QID PRN (Reason: shortness of breath) Qty: 1 0RF prednisone 20 mg tablet 20 mg PO DAILY 5 Days Qty: 5 0RF Follow-up/Referrals: UNKNOWN,DOCTOR [Primary Care Provider] -
[2024-10-24] MEDS: levoFLOXacin 500 MG TABLET PO (13:39)
[2024-10-24 14:08] VITALS: BP 130/62; PULSE 94; RESP 18; TEMP 36.8; O2SAT 97
== END 2024-10-24 14:08 | disposition home or self-care (01) ==
PROVIDERS: Emergency Provider Emergency Medicine
DX: J18.9 Pneumonia, unspecified organism (principal); F17.200 Nicotine dependence, unspecified, uncomplicated; Z20.822 Contact with and (suspected) exposure to COVID-19
CPT/HCPCS: 71045; 87637; 96372; 99283; A9270; J1010

== ENCOUNTER 2025-06-28 07:48 | Emergency (ER) | payer OTHER, SELFPAY ==
[2025-06-28 07:54] VITALS: BP 160/98; PULSE 71; RESP 16; TEMP 36.6; O2SAT 99
--- NOTE | 2025-06-28 07:55 | ED_ITS ---
HPI - Skin/Abscess/Foreign Bdy General Chief complaint: Skin/Abscess/Foreign Body Stated complaint: left eye pain with redness Time Seen by Provider: 06/28/25 07:50 Source: patient Mode of arrival: ambulatory Limitations: no limitations History of Present Illness HPI narrative: 30 year old female presents to the Emergency Department complaining of rash to left periorbital region. Onset since awakening yesterday. Denies any known substance contact to area. MD complaint: rash Onset (ago): day(s) (1) Location: face (left periorbital) Severity: mild Quality: burning and pruritic Relieving factors: none Exacerbating factors: none Associated symptoms: denies other symptoms Treatments prior to arrival: none Related Data Allergies Allergy/AdvReac Type Severity Reaction Status Date / Time hydrocodone Allergy Hives Verified 06/28/25 07:51 Review of Systems Review of Systems: All systems reviewed & are unremarkable except as noted in HPI and below Constitutional: Constitutional: Reports as per HPI, Reports chills and Reports fever(s) Eyes: Eyes: Reports as per HPI, Denies no additional eye complaints, Denies change in vision and Denies photophobia ENT: Reports system reviewed and no additional complaints, except as documented, Denies nasal congestion and Denies sore throat Cardiovascular: Cardiovascular: Reports as per HPI and Denies chest pain Respiratory: Respiratory: Reports as per HPI, Denies chest congestion and Denies dyspnea Gastrointestinal: Gastrointestinal: Reports as per HPI, Denies abdominal pain, Denies diarrhea, Denies nausea and Denies vomiting Genitourinary: Genitourinary: Reports no additional female genitourinary complaints Musculoskeletal: Musculoskeletal: Reports no additional musculoskeletal complaints Integumentary/Breasts: Skin/Breast: Reports system reviewed and no additional complaints, except as docu and Reports rash (left periorbital only) Neurologic: Reports system reviewed and no additional complaints, except as do cumented Psychiatric: Psychiatric: Reports no additional psychiatric complaints Endocrine: Endocrine: Reports no additional endocrine complaints Hematologic/Lymphatic: Hematologic/Lymphatic: Reports no additional hematologic/lymphatic complaints Allergic/Immunologic: Allergic/Immunologic: Reports no additional allergic/immunologic complaints [facility] Past Medical History Medical History Post hysterectomy menopause Social History Social History Smoking status: Current every day smoker Alcohol intake: never Substance use: former Substance use type: former substance user, heroin, amphetamines and opiates Living arrangements: with family Exam Const: General: healthy appearing Nutritional Appearance: obese Orientation/consciousness: patient oriented x3 Limitations: no limitations HENMT: Head: normal to inspection Ears: external ears normal Face/Nose/Sinus: Normal external nose present Face and sinus: normal facial exam Mouth: Yes Normal oral and palatal mucosa present Teeth and gingiva: dentition normal Throat: posterior oropharynx normal Other: erythematous, tiny vesicular type rash to inferior and lateral left periorbital region [resembling contact dermatitis]. No drainage. Eyes: Conjunctivae: conjunctivae normal Pupils: Equal, round and reactive pupils present EOM: EOMs intact bilaterally Direct Ophthalmoscopy: no photophobia Neck: Neck: normal visual inspection, no lymphadenopathy and no meningeal signs Chest: Chest palpation & inspection: normal inspection of the chest Resp: Effort & Inspection: normal respiratory effort Auscultation: clear to auscultation bilaterally Cardio: Rate: regular rate Rhythm: regular rhythm Heart sounds: no murmu rs GI: Inspection: non-distended Other: non-tender Skin: General skin exam: normal color Other: left periorbital rash Neuro: General: patient oriented x3 Cranial nerves: Yes Nystagmus not present Speech: normal speech Gait exam (Neuro): Normal gait present Other: grossly normal Extrem: General: normal to inspection Psych: Mental Status: mental status grossly normal Course Course Emergency Course: 30 y/o female presents to the ED c/o left periorbital rash. Onset yesterday when awoke. PE: rash to inferior-lateral left periorbital region resembling contact dermatitis noted. No drainage. Rx and Instructions Vital Signs Vital signs: Vital Signs Temperature 36.6 C 06/28/25 07:54 Pulse Rate 71 06/28/25 07:54 Respiratory Rate 16 06/28/25 07:54 Blood Pressure 160/98 H 06/28/25 07:54 Pulse Oximetry 99 06/28/25 07:54 Oxygen Delivery Room Air 06/28/25 07:54 Temperature 36.6 C 06/28/25 07:54 Pulse Rate 71 06/28/25 08:14 Respiratory Rate 18 06/28/25 08:14 Blood Pressure 147/94 H 06/28/25 08:14 Pulse Oximetry 98 06/28/25 08:14 Oxygen Delivery Room Air 06/28/25 08:14 Discharge Plan Discharge Clinical Impression: Contact dermatitis Patient Disposition: Home Condition: Stable Instructions: Contact Dermatitis (ED) Additional Instructions: Calamine or Caladryl lotion topically Take medications as prescribed Follow up Primary Care Provider Patient Language: Bhutanese Prescriptions: New diphenhydramine HCl 50 mg capsule 50 mg PO Q6H PRN (Reason: itching) Qty: 20 0RF prednisone 10 mg tablet 10 mg PO DIRECTED Qty: 21 0RF Rx Instructions: Day 1: 6 tabs, Day 2: 5 tabs, Day 3: 4 tabs, Day 4: 3 tabs, Day 5: 2 tabs, Day 6: 1 tab No Action ProAir RespiClick 90 mcg/actuation aerosol powdr breath activated 2 inh inhalation QID PRN (Reason: shortness of breath) Qty: 1 0RF Follow-up/Referrals: Jad Arguello MD [Physician, Internal Medicine] UNKNOWN,DOCTOR [Non-Staff] Time of Disposition: 08:06
--- OUTSIDE RECORDS SUMMARY | 2025-06-28 08:09 | XMS_ITS | Patient Health Record ---
Author Organization [facility] Address [address] [place] [address] Care Team Providers Care Rn Palliative Care Name Role Phone CLEVELAND SUMNER Unavailable [phone] Reason For Referral No Information Social History Social History Additional Details Category Social Info Options Details Migrated Social History Migrated Social History Substance Use :: Tobacco Problems Problem Type SNOMED Code ICD Code Onset Dates Problem Status W/U Status Risk Notes Problem Generalized anxiety disorder (62127111) Generalized anxiety disorder (F41.1) 7 Active confirmed Problem Tension headache (189895804) Tension headache (G44.209) 7 Active confirmed Plan Of Treatment No Information Insurance Providers Payer Name Payer Address Payer Phone Subscriber Number Group Number Insured Name Patient Relationship to Insured Coverage Start Date Coverage End Date [employer] [address] [address] [place] [address] [phone] [id number] Nanette Pollock Self - patient is the insured [place] [employer] [place] [address] [id number] Nanette Pollock Self - patient is the insured [place] [employer] Non [place] [address] [id number] Nanette Pollock Self - patient is the insured
--- OUTSIDE RECORDS SUMMARY | 2025-06-28 08:09 | XMS_ITS | Clinical Summary ---
Author Organization [facility] Address [address] [place] [address] Phone Care Team Providers Care Senior Db2 Systems Programmer Name Role Phone Provider, None Primary Care Provider Unavailabl e Allergies Active Allergy Reactions Criticality Noted Date Comments Hydrocodone Hives 06/03/2018 Prednisone Other (see Comments) 06/03/2018 Chest pain Social History Tobacco Use Types Packs/Day Years Used Date Smoking Tobacco: Former Smokeless Tobacco: Never Alcohol Use Standard Drinks/Week Comments No 0 (1 standard drink = 0.6 oz pur e alcohol) Comments No Sex and Gender Information Value Date Recorded Sex Assigned at Not on file Legal Sex Female 2:32 PM CDT Gender Identity Not on file Sexual Orientation Not on file Last Filed Vital Signs Vital Sign Reading Time Taken Comments Blood Pressure 127/68 06/03/2018 3:46 PM CDT Pulse 86 06/03/2018 3:46 PM CDT Temperature 36.7 C (98 F) 06/03/2018 3:46 PM CDT Respiratory Rate 18 06/03/2018 3:46 PM CDT Oxygen Saturation 100% 06/03/2018 3:46 PM CDT Inhaled Oxygen Concentration - - Weight 87.5 kg (193 lb) 06/03/2018 2:54 PM CDT Height 144.8 cm (4' 9) 06/03/2018 2:54 PM CDT Body Mass Index 41.76 06/03/2018 2:54 PM CDT Plan of Treatment Not on file Insurance MEDICAID [place] Advance Directives * Full Code (Latest Code Status on File) Date Activated Date Inactivated Comments 06/03/2018 4:03 PM 06/03/2018 8:05 PM CPR-Full Som atment: FULL ARREST: Attempt Resuscitation/CPR wit intubation and mechanical ventilation. PRE-ARREST: Use entire range of life support measures to stabilize the patient. Care Teams Senior Db2 Systems Programmer Relationship Specialty Start Date End Date Provider, None [place] PCP - General 06/03/18
[2025-06-28 08:14] VITALS: BP 147/94; PULSE 71; RESP 18; O2SAT 98
== END 2025-06-28 08:16 | disposition home or self-care (01) ==
PROVIDERS: Emergency Provider Emergency Medicine; PCP Nurse Practitioner Family
DX: L25.9 Unspecified contact dermatitis, unspecified cause (principal); F17.200 Nicotine dependence, unspecified, uncomplicated
CPT/HCPCS: 99283

== ENCOUNTER 2025-08-25 07:40 | Emergency (ER) | payer OTHER, SELFPAY ==
--- OUTSIDE RECORDS SUMMARY | 2025-08-25 07:42 | XMS_ITS | Clinical Summary ---
Author Organization [facility] Address [address] [place] [address] Phone Care Team Providers Care Windows Application Administrator Name Role Phone Provider, None Primary Care [...] measures to stabilize the patient. Care Teams Windows Application Administrator Relationship Specialty Start Date End Date Provider, None [place] PCP - General 06/03/18
--- OUTSIDE RECORDS SUMMARY | 2025-08-25 07:42 | XMS_ITS | Patient Health Record ---
Author Organization [facility] Address [address] [place] [address] Care Team Providers Care Caterer'S Aide Name Role Phone [facility] SUMNER Unavailable [phone] Reason For Referral No Information Social History Social History Additional Details Category Social Info Options Details Migrated Social History Migrated Social History Substance Use :: Tobacco Problems Problem Type SNOMED Code ICD Code Onset Dates Problem Status W/U Status Risk Notes Problem Generalized anxiety disorder (90547685) Generalized anxiety disorder (F41.1) 7 Active confirmed Problem Tension headache (304393194) Tension headache (G44.209) 7 Active confirmed Plan Of Treatment No Information Insurance Providers Payer Name Payer Address Payer Phone Subscriber Number Group Number Insured Name Patient Relationship to Insured Coverage Start Date Coverage End Date [employer] [address] [address] [place] [address] [id number] Nanette Pollock Self - patient is the insured [place] [employer] [place] [place] [address] [id number] Nanette Pollock Self - patient is the insured [place] [employer] [place] [address] [id number] Nanette Pollock Self - patient is the insured
[2025-08-25 07:45] VITALS: BP 185/133; PULSE 67; RESP 18; TEMP 36.5; O2SAT 98
--- NOTE | 2025-08-25 07:52 | ED_ITS ---
HPI - Wound/Laceration General Chief Complaint: Wound/Laceration Stated Complaint: splinter in right palm Time Seen by Provider: 08/25/25 07:47 Source: patient Mode of arrival: ambulatory History of Present Illness HPI narrative: splinter to right hand from her wooden cabinet last night tried to pull it out without success. No other injuries Related Data Home Medications ?Medication ?Instructions ?Recorded ?Confirmed ?Last Taken ?Type sertraline 50 mg tablet 50 mg PO DAILY 08/25/25 Unk nown History Allergies Allergy/AdvReac Type Severity Reaction Status Date / Time hydrocodone Allergy Hives Verified 08/25/25 08:02 Review of Systems Review of Systems: All systems reviewed & are unremarkable except as noted in HPI and below PMFSH Past Medical History Medical History Post hysterectomy menopause Social History Social History Alcohol intake: never Substance use: former Substance use type: former substance user, heroin, amphetamines and opiates Living arrangements: with family Exam Narrative: General appearance: Well-developed, well-nourished Skin: Normal color right hand exam showed 0.5 cm splinter subcutaneous, palmar side. No swelling, no discharge, no rash Vascular: Normal peripheral pulses, normal capillary refill. Musculoskeletal: Normal range of motion, nontender back Neurologic: Alert and oriented ?3, [employer] [facility] [employer] HEAD is normal as tested, no gross motor deficit Course Vital Signs Vital signs: Vital Signs Temperature 36.5 C 08/25/25 07:45 Pulse Rate 67 08/25/25 07:45 Respiratory Rate 18 08/25/25 07:45 Blood Pressure 185/133 H 08/25/25 07:45 Pulse Oximetry 98 08/25/25 07:45 Oxygen Delivery Room Air 08/25/25 07:45 Temperature 36.5 C 08/25/25 07:45 Pulse Rate 67 08/25/25 07:45 Respiratory Rate 18 08/25/25 07:45 Blood Pressure 185/133 H 08/25/25 07:45 Pulse Oximetry 98 08/25/25 07:45 Oxygen Delivery Room Air 08/25/25 07:45 Procedures Foreign Body Removal Foreign Body #1: Foreign Body Removal Date: 08/25/25 Time Out Performed: yes ( 5 minutes) Site: right and other ( hand) Description of foreign body: other ( wooden splinter) Sedation/Analgesia: none Technique: other ( using 18 gauge needle 1st then removal with a tweezer) Confirmed by:: direct visualization Complications: none Post-procedure exam: awake, alert Neurovascular: normal distal pulse MDM - Wound/Laceration MDM Narrative Medical decision making narrative: patient blood pressure was elevated on arrival to the ED. Patient was seen by her family physician 3 days ago with normal blood pressure. Repeated blood pressure showed some improvement. Patient is scheduled to see her family physician in 2 days. Patient denies any headache, lightheadedness, chest pain, shortness of breath or back pain or nausea or vomiting. Critical Care Time Critical Care Time Critical Care Time: No Discharge Plan Discharge Clinical Impression: Splinter in skin, Hypertension Patient Disposition: Home Condition: Improved Instructions: Soft Tissue Foreign Body (ED), Hypertension (ED) Additional Instructions: Return if symptoms are worsening , call your family physician for appointment, take Tylenol, ibuprofen as as needed for aches and pain, continue home medications. Patient Language: Faroese Prescriptions: No Action sertraline 50 mg tablet 50 mg PO DAILY Follow-up/Referrals: Grayson,Ron Mathis NP [Primary Care Provider, Family Practice]
[2025-08-25 07:55] VITALS: BP 164/111; PULSE 68; RESP 20; O2SAT 98
--- OUTSIDE RECORDS SUMMARY | 2025-08-25 08:08 | XMS_ITS | Clinical Summary ---
Author Organization [facility] Address [address] [place] [address] Phone Care Team Providers Care Transplant Worker Name Role Phone Provider, None Primary Care [...] measures to stabilize the patient. Care Teams Transplant Worker Relationship Specialty Start Date End Date Provider, None [place] PCP - General 06/03/18
== END 2025-08-25 08:05 | disposition home or self-care (01) ==
LOC: CHSED 08:03
PROVIDERS: Emergency Provider Emergency Medicine; PCP Nurse Practitioner Family
DX: S60.551A Superficial foreign body of right hand, initial encounter (principal); I10 Essential (primary) hypertension; W45.8XXA Other foreign body or object entering through skin, initial encounter
CPT/HCPCS: 99282

== ENCOUNTER 2025-09-15 08:02 | Emergency (ER) | payer OTHER, SELFPAY ==
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
[2025-09-15 08:05] VITALS: BP 142/60; PULSE 80; RESP 18; TEMP 36.6; O2SAT 100
--- OUTSIDE RECORDS SUMMARY | 2025-09-15 08:10 | XMS_ITS | Clinical Summary ---
Author Organization [facility] Address [address] [place] [address] Phone Care Team Providers Care Professional Wrestler Name Role Phone Provider, None Primary Care [...] measures to stabilize the patient. Care Teams Professional Wrestler Relationship Specialty Start Date End Date Provider, None [place] PCP - General 06/03/18
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
--- OUTSIDE RECORDS SUMMARY | 2025-09-15 09:27 | XMS_ITS | Clinical Summary ---
Author Organization [facility] Address [address] [place] [address] Phone Care Team Providers Care Milled Rubber Tender Name Role Phone Provider, None Primary Care [...] measures to stabilize the patient. Care Teams Milled Rubber Tender Relationship Specialty Start Date End Date Provider, None [place] PCP - General 06/03/18
[2025-09-15 10:18] VITALS: BP 148/93; PULSE 60; RESP 14; TEMP 36.7; O2SAT 100
== END 2025-09-15 10:20 | disposition home or self-care (01) ==
PROVIDERS: Emergency Provider Emergency Medicine; PCP Nurse Practitioner Family
DX: S16.1XXA Strain of muscle, fascia and tendon at neck level, initial encounter (principal); M75.51 Bursitis of right shoulder; V48.0XXA Car driver injured in noncollision transport accident in nontraffic accident, initial encounter
CPT/HCPCS: 72125; 73030; 99284